=== PATIENT | female | born 1980 | race Caucasian/White ===

== ENCOUNTER 2016-09-17 05:50 | Day surgery (SDC) | payer OTHER ==
--- NOTE | ~2016-09-17 | OP ---
Record Of Operation [facility] [address] [place]. [address] NAME: JEFF COSTA : 78 STATUS : REG [facility] PAT#: [id number] AGE: 36 ADM/REG DATE : 09/17/16 MR#: [id number] REPORT SERV DATE: 09/17/16 DICTATED BY: BLAS EVANS DATE: 09/17/16 REPORT STATUS : Draft TRANSCRIBED BY: AMELIA DATE: 09/17/16 DATE OF PROCEDURE: 09/17/2016 PRE-PROCEDURE DIAGNOSIS: Six and 10 mm right lower pole renal calculi. POSTPROCEDURE DIAGNOSIS: Six and 10 mm right lower pole renal calculi. PROCEDURE: Right ESWL. OPTICAL TECHNICIAN: Mague Steele. ANESTHESIA: MAC. HISTORY: Ms. Costa is a 36-year-old white female with right renal calculi. She requested right ESWL. Risks specific to this procedure include, but not limited to bleeding, infection, incomplete stone fragmentation, Steinstrasse, hematoma, injury to neighboring organs, need for further urologic procedures, anesthesia complications, and so forth. I answered all of her questions I believe to her satisfaction. Subsequently, she requested the procedure and provided her informed written consent. PROCEDURE IN DETAIL: On 09/17/2016, the patient was brought to the Lithotripsy Suite. She was placed supine on the Dornier Compact Delta II Lithotriptor. Biplanar fluoroscopy was used to localize the right renal calculi. A time-out was called. The proper patient and procedure were confirmed. Levaquin was administered as a perioperative antibiotic. At this time, the Anesthesia Team established monitored anesthesia care. Subsequently, we delivered a total of 2500 shocks at a maximum power of 4 and rate of 120 shocks per minute to the stone. Fluoroscopy time was 1 minute 36 seconds. The patient tolerated the procedure well without immediate complications, transferred to the recovery room in stable condition. JACKIE/AMELIA Blas Evans M.D. / [id number] CC: Ed Siddiqui
[~2016-09-17 05:50] MED LIST: BACDS PO; BYETTA SC; COREG3 PO; COREG6 PO; COZAAR100 MG PO; CYMBALTA30 PO; CYMBALTA60 PO; DENIES HOME MEDS; DIL2TAB PO; FLORASTOR250 MG PO; KLONO1 PO; LATUDA120 MG PO; LYRICA300 MG PO; MEDROLPAK4 PO; NEUR400 PO; NORCO1 TA1 PO; NORCO1 TA2 PO; POT GLUCONAT550 M1 PO; PRILO PO; PROTONIX PO; PYR200 PO; SEPTRA DS1 TAB PO; SINGULAIR1 PO; TRILEP300 PO; ULTRAM50 PO; V5 PO; VIST25 PO; ZANAFLEX2 MG PO; ZOFRAN4 PO
[2016-12-29] MEDS ORDERED: DIL2TAB PO (16:27)
[2016-12-29] MEDS ORDERED: PR25 PO (16:28)
[2016-12-29] MEDS ORDERED: OMNICEF300 PO (16:28)
[2016-12-29] MEDS ORDERED: PYR100B PO (16:28)
[2016-12-29] MEDS ORDERED: ZOFRAN4 PO (16:29)
== END 2016-09-17 23:59 | disposition home or self-care (01) ==
LOC: SDC 05:50
PROVIDERS: Urology
PROC: 0TF3XZZ Fragmentation in Right Kidney Pelvis, External Approach (ICD-10-PCS; principal; 2016-09-17 08:00)
DX: N20.0 Calculus of kidney (principal); I10 Essential (primary) hypertension; F17.200 Nicotine dependence, unspecified, uncomplicated; E11.9 Type 2 diabetes mellitus without complications; Z98.891 History of uterine scar from previous surgery; Z98.51 Tubal ligation status; Z90.49 Acquired absence of other specified parts of digestive tract; F31.9 Bipolar disorder, unspecified; Z87.442 Personal history of urinary calculi; K21.9 Gastro-esophageal reflux disease without esophagitis; K44.9 Diaphragmatic hernia without obstruction or gangrene; M41.9 Scoliosis, unspecified; R00.0 Tachycardia, unspecified; F17.210 Nicotine dependence, cigarettes, uncomplicated; G43.909 Migraine, unspecified, not intractable, without status migrainosus; Z88.5 Allergy status to narcotic agent; Z88.1 Allergy status to other antibiotic agents; Z79.899 Other long term (current) drug therapy; Z79.891 Long term (current) use of opiate analgesic
CPT/HCPCS: 50590; 74000; 82962; 84703; 93005; A9270-GY; J2250; J3010

== ENCOUNTER 2016-10-02 05:49 | Day surgery (SDC) | payer OTHER ==
--- NOTE | ~2016-10-02 | OP ---
Record Of Operation [facility] [address] [place]. [address] NAME: JEFF COSTA : 78 STATUS : REG [facility]#: [id number] AGE: 36 ADM/REG DATE : 10/02/16 MR#: [id number] REPORT SERV DATE: 10/02/16 DICTATED BY: BLAS EVANS DATE: 10/02/16 REPORT STATUS : Draft TRANSCRIBED BY: MODL DATE: 10/02/16 DATE OF PROCEDURE: 10/02/2016 PREPROCEDURE DIAGNOSIS: An 8 mm right distal ureteral calculus. POSTPROCEDURE DIAGNOSIS: An 8 mm right distal ureteral calculus. PROCEDURE: Right ESWL. SURGEON: Blas Evans M.D. CLIENT APPLICATION SUPPORT SPECIALIST: Mague Steele. ANESTHESIA: MAC. HISTORY: Ms Costa is a 36-year-old white female, known to me with a lengthy history of nephrolithiasis. She previously underwent right ESWL several weeks ago on a large right renal calculus. She has seen a distal migration with incomplete stone fragmentation to the distal right ureter. We discussed treatment options and she requested the right ESWL on this fragment. Risks include, but not limited to bleeding, infection, incomplete stone fragmentation, Steinstrasse, hematoma, injury to neighboring organs, need for further urologic procedures, anesthesia complications, and so forth. I answered all of her questions I believe to her satisfaction. Subsequently, she requested the procedure and provided her informed written consent. PROCEDURE IN DETAIL: On 10/02/2016, the patient was brought to the lithotripsy suite. She was placed supine on the Dornier Compact Delta II Lithotriptor. Biplanar fluoroscopy was used to localize the right ureteral calculus. A time-out was called. The proper patient and procedure were confirmed. Bactrim was administered as a perioperative antibiotic. At this time, the Anesthesia team established monitored anesthesia care. Subsequently, we delivered a total of 3000 shocks at a maximum power level of 5 in rate of 120 shocks per minute to the stone. Fluoroscopy time was 2 minutes 51 seconds. The patient tolerated the procedure well without immediate complications, was transferred to the recovery area in stable condition. RAC/MODL Blas Evans M.D. / [id number] CC: Record Of Operation [place] [address] [address] NAME: JEFF COSTA : 78 STATUS : REG [facility] PAT#: [id number] AGE: 36 ADM/REG DATE : 10/02/16 MR#: [id number] REPORT SERV DATE: 10/02/16 DICTATED BY: BLAS EVANS DATE: 10/02/16 REPORT STATUS : Draft TRANSCRIBED BY: MODL DATE: 10/02/16 Ed Siddiqui
[2016-12-29] MEDS ORDERED: DIL2TAB PO (16:27)
[2016-12-29] MEDS ORDERED: PYR100B PO (16:28)
[2016-12-29] MEDS ORDERED: PR25 PO (16:28)
[2016-12-29] MEDS ORDERED: OMNICEF300 PO (16:28)
[2016-12-29] MEDS ORDERED: ZOFRAN4 PO (16:29)
== END 2016-10-02 23:59 | disposition home or self-care (01) ==
LOC: SDC 05:49
PROVIDERS: Urology
PROC: 0TF6XZZ Fragmentation in Right Ureter, External Approach (ICD-10-PCS; principal; 2016-10-02 08:00)
DX: N20.1 Calculus of ureter (principal); E66.9 Obesity, unspecified; R73.03 Prediabetes; I10 Essential (primary) hypertension; K21.9 Gastro-esophageal reflux disease without esophagitis; F17.210 Nicotine dependence, cigarettes, uncomplicated; K44.9 Diaphragmatic hernia without obstruction or gangrene; G43.909 Migraine, unspecified, not intractable, without status migrainosus; R00.0 Tachycardia, unspecified; M41.9 Scoliosis, unspecified; M54.12 Radiculopathy, cervical region; M54.2 Cervicalgia; Z88.5 Allergy status to narcotic agent; Z88.1 Allergy status to other antibiotic agents; Z98.1 Arthrodesis status; Z87.442 Personal history of urinary calculi; Z98.891 History of uterine scar from previous surgery; Z79.899 Other long term (current) drug therapy
CPT/HCPCS: 50590; 74000; 82962; 84703; J2250; J2405; J3010